=== PATIENT | female | born 1965 | race Caucasian/White ===

== ENCOUNTER 2018-01-04 10:58 | Day surgery (SDC) | payer OTHER ==
[2018-01-04] MEDS ORDERED: ceFAZolin 2 GM/SWFI 2 GM/20 ML SYR IVP ONE (11:06)
[2018-01-04] MEDS ORDERED: LR 1,000 ML IV ONE (11:08)
[2018-01-04] MEDS ORDERED: LIDOCAINE 1% 2 ML INJ ID PRN (11:08)
[2018-01-04] MEDS ORDERED: ceFAZolin 2 GM/DEXTROSE 100 ML IV ONE (11:30)
[2018-01-04] MEDS ORDERED: BUPIVACAINE/EPI 0.5% 30 ML SDV ONE (11:55)
[2018-01-04] MEDS ORDERED: BACITRACIN 50,000 UNITS/10 ML SYR IRR ONE (11:56)
[2018-01-04] MEDS ORDERED: LIDOCAINE 1% 300 MG/30 ML SDV ONE (11:56)
[2018-01-04] MEDS ORDERED: fentaNYL 100 MCG/2 ML INJ ONE ×2 (12:03→12:27)
[2018-01-04] MEDS ORDERED: MIDAZOLAM 2 MG/2 ML VIAL ONE (12:15)
[2018-01-04] MEDS ORDERED: MIDAZOLAM 2 MG/2 ML VIAL IVP ONE (12:16)
--- NOTE | 2018-01-04 12:18 | PDANEPAE ---
ANE History of Present Illness L distal radius fx ANE Past Medical History - Cardiovascular History Hx Hypertension: Yes Hx Arrhythmias: No Hx Chest Pain: No Hx Coronary Artery / Peripheral Vascular Disease: No Hx CHF / Valvular Disease: No Hx Palpitations: No - Pulmonary History Hx COPD: No Hx Asthma/Reactive Airway Disease: No Hx Recent Upper Respiratory Infection: No Hx Oxygen in Use at Home: No Hx Sleep Apnea: No Sleep Apnea Screening Result - Last Documented: Negative - Neurologic History Hx Cerebrovascular Accident: No Hx Seizures: No Hx Dementia: No - Endocrine History Hx Diabetes: No Hypothyroid: No Hyperthyroid: No Obesity: yes, moderate - Renal History Hx Renal Disorders: No - Liver History Hx Hepatic Disorders: No - Neurological & Psychiatric Hx Hx Neurological and Psychiatric Disorders: No Neurological / Psychiatric History Comment: HX OF DEPRESSION - Cancer History Hx Cancer: No - Congenital Disorder History Hx Congenital Disorders: No - GI History GERD: mild Hx Gastrointestinal Disorders: Yes Gastrointestinal History Comment: GERD - Other Health History Other Health History: GLAUCOMA - Chronic Pain History Chronic Pain: Yes (GLUTE PAIN) - Surgical History Prior Surgeries: NONE ANE Review of Systems Review of Systems: - Exercise capacity METS (RN): 4 METS ANE Patient History - Allergies Allergies/Adverse Reactions: Penicillins Allergy (Verified 01/03/18 16:49) Vomiting - Home Medications Home Medications: Dexilant 01/03/18 [Last Taken 01/04/18 06:50] Estradiol 01/03/18 [Last Taken 01/04/18 06:50] Latanoprost 01/03/18 [Last Taken 01/03/18 21:00] Metoprolol Tartrate 01/03/18 [Last Taken 01/04/18 06:50] - NPO status NPO Since - Liquids (Date): 01/04/18 NPO Since - Liquids (Time): 09:00 NPO Since - Solids (Date): 01/03/18 NPO Since - Solids (Time): 19:00 - Anes Hx Anes Hx: no prior problems - Smoking Hx Smoking Status: Never smoked - Alcohol Use Alcohol Use: Occasionally - Family Anes Hx Family Anes Hx: neg - N/A Family Hx Anesthesia Complications: NONE ANE Labs/Vital Signs - Vital Signs Blood Pressure: 141/92 Heart Rate: 95 Respiratory Rate: 14 O2 Sat (%): 93 Height: 172.72 cm Weight: 102.965 kg ANE Physical Exam - Airway Neck exam: FROM Mallampati Score: Class 2 Mouth exam: normal dental/mouth exam - Pulmonary Pulmonary: no respiratory distress, no rales or rhonchi, clear to auscultation - Cardiovascular Cardiovascular: regular rate and rhythym, no murmur, rub, or gallop - ASA Status ASA Status: II ANE Anesthesia Plan Anesthesia Plan: general endotracheal anesthesia Total IV Anesthesia: No
--- NOTE | 2018-01-04 12:22 | PDHPUP ---
History & Physical Update H&P update statement: This history and physical update is based on an assessment of the patient which was completed after admission or registration (within 24 hours), but prior to the surgery/procedure. H&P update: H&P reviewed & patient examined, changes noted H&P changes: She continues to have persistent carpal tunnel symptoms in the left hand. Will proceed with CTR
[2018-01-04] MEDS ORDERED: ROCURONIUM 50 MG/5 ML VIAL ONE (12:27)
[2018-01-04] MEDS ORDERED: DEXAMETHASONE 4 MG/ML VIAL ONE (12:27)
[2018-01-04] MEDS ORDERED: ONDANSETRON 4 MG/2 ML VIAL ONE ×2 (12:27→16:00)
[2018-01-04] MEDS ORDERED: LIDOCAINE 2% 5 ML SDV ONE (12:27)
[2018-01-04] MEDS ORDERED: PROPOFOL 200 MG/20 ML VIAL ONE (12:30)
[2018-01-04] MEDS ORDERED: fentaNYL 100 MCG/2 ML INJ IVP ONE (12:45)
[2018-01-04] MEDS ORDERED: PROPOFOL/EMULSION 500 MG/50 ML BOTTLE IV ONE (12:45)
[2018-01-04] MEDS ORDERED: PHENYLEPHRINE HCL 100 MCG/ML SYR IVP PRN (13:08)
[2018-01-04] MEDS ORDERED: DIAZEPAM 5 MG/ML 1 ML SYR IVP PRN (13:08)
[2018-01-04] MEDS ORDERED: ACETAMINOPHEN 500 MG TAB PO PRN (13:08)
[2018-01-04] MEDS ORDERED: HYDROCODONE/APAP 5/325 TAB PO PRN (13:08)
[2018-01-04] MEDS ORDERED: HYDROmorphONE/DILAUDID 2 MG/ML INJ IVP PRN (13:08)
[2018-01-04] MEDS ORDERED: LR 500 ML IV PRN (13:08)
[2018-01-04] MEDS ORDERED: ONDANSETRON 4 MG/2 ML VIAL IVP PRN (13:08)
[2018-01-04] MEDS ORDERED: fentaNYL 100 MCG/2 ML INJ IVP PRN (13:08)
[2018-01-04] MEDS ORDERED: LABETALOL HCL 5 MG/ML 20 ML MDV IVP PRN (13:08)
[2018-01-04] MEDS ORDERED: epHEDrine SULFATE 10 MG/ML SYR IVP PRN (13:08)
[2018-01-04] MEDS ORDERED: PROMETHAZINE HCL 25 MG/ML INJ IVP PRN (13:08)
[2018-01-04] MEDS ORDERED: NALOXONE HCL 0.4 MG/ML INJ IVP PRN (13:08)
[2018-01-04] MEDS ORDERED: PHENYLEPHRINE HCL 100 MCG/ML SYR ONE (13:16)
[2018-01-04] MEDS ORDERED: KETOROLAC 30 MG/1 ML SDV ONE (14:26)
[2018-01-04] MEDS ORDERED: oxyCODONE IR 5 MG TAB ONE ×2 (16:09→16:41)
[2018-01-04] MEDS ORDERED: ACETAMINOPHEN 500 MG TAB ONE (16:09)
[2018-01-04] MEDS: oxyCODONE IR 5 MG TAB PO PRN ×2 (16:10→16:45)
--- NOTE | 2018-01-04 17:21 | POSTANESTH ---
Post Anesthetic Evaluation Cardiovascular Status: Normal, Stable Respiratory Status: Normal, Stable Level of Consciousness/Mental Status: Can Participate in Eval Pain Control: Adequate, Prn Tx Ordered Nausea/Vomiting Control: Adequate, Prn Tx Ordered Complications Possibly Related to Anesthesia: None Noted
[2018-01-04 17:38] VITALS: BP 127/76
--- NOTE | 2018-01-06 08:35 | GOP ---
[f rep st] OPERATIVE REPORT DATE OF OPERATION: 01/04/2018 SURGEON: Lan Camarillo MD ANESTHESIA: General. PREOPERATIVE DIAGNOSIS: 1. Left intra-articular distal radius fracture in 2 parts. 2. Carpal tunnel syndrome. POSTOPERATIVE DIAGNOSIS: 1. Left intra-articular distal radius fracture in 2 parts. 2. Carpal tunnel syndrome. PROCEDURE PERFORMED: 1. Open reduction internal fixation left distal radius, intra-articular, 2 parts. 2. Left open carpal tunnel release. FINDINGS: INDICATIONS: This is a 52-year-old female who sustained this injury 2 days prior while she was helping back up a trailer while on vacation for the weekend. She fell backwards, injuring her wrist, seen at a local ER. Reduction was performed. She was placed in a splint. She notes that she developed numbness and tingling in her radial-sided digits after the injury, which improved some after the reduction but have since persisted. The symptoms come and go and include tingling of the thumb, index, and long finger. I saw her in the office the day after the injury. I reviewed her x-rays. Pre- reduction x-rays show a right severe distal radius fracture with complete dissociation of the radius and the radial fragment and the ulna dorsally displaced. There is a separate ulnar styloid fragment. Postreduction films with persistent dorsal angulation about 30 degrees. With the amount of initial displacement and persistent dorsal displacement ORIF is indicated. I discussed with the patient the possibility of a carpal tunnel release. She does not appear to have acute carpal tunnel syndrome, but she has developed transient carpal tunnel symptoms that persisted. I discussed with her that if they persisted the following day from surgery will likely proceed with a carpal tunnel release as there is likely swelling around the nerve. I discussed with her the possibility of having to address the ulnar side due to the complete radioulnar dissociation. I discussed with her the risks of the surgery. Risks include pain, bleeding, infection, damage to surrounding structures, need for further operations in the future including implant removal, delayed union, nonunion, stiffness, ulnar-sided wrist pain, tendon irritation. She understood these risks and wished to proceed. DESCRIPTION OF PROCEDURE: The patient was seen in preoperative holding area. She was given an opportunity to ask questions. All her questions were answered. Consent was signed. Surgical site was marked. She was transferred to the operative suite. Care was taken to pad all bony prominences on the gurney. The left upper extremity was prepped and draped in the usual sterile fashion. 2 g of Ancef was given prior to incision. Time-out was called including surgical and anesthesia teams confirming the surgical site and procedure to be performed. The left upper extremity was prepped and draped in the usual sterile fashion. An Esmarch was used to exsanguinate the left upper extremity. The tourniquet was inflated to 250 mmHg. I began the procedure with the carpal tunnel release. I made a standard mini open carpal tunnel incision. I incised the skin to the level of the palmar fascia, incised the palmar fascia, visualizing the transverse carpal ligament. I incised some palmaris brevis fibers that were . I incised the transverse carpal ligament, revealing the nerve. Then, I divided the distal antebrachial fascia under direct visualization proximally. I inspected the nerve. In the carpal tunnel and deep to the nerve, there was hemorrhage from the fracture. This was likely increasing the pressure on the carpal tunnel. I identified the motor recurrent branch which was intact. The wound was then irrigated, and I turned my attention to the ORIF of the distal radius. I made an incision for a modified volar Florentin approach. A modified Florentin approach was performed in the standard fashion. All vital structures were protected at all times. I identified the pronator quadratus. The distal aspect of the part where it was already completely peeled off the distal radius with with some periosteal stripping, took off the lid off the remainder of the pronator quadratus. I visualized the fracture, I did the fracture, then performed provisional reduction. I chose a plate, placed the plate over the bone, when in the elected position I applied and placed the cortical screws further down to the shaft, then reduced the fracture to the plate, held this with K-wires. I checked my reduction. I was happy with my reduction. I then placed the distal locking screw near the locking closure, I checked the position of my distal locking screws. The screw that was most ulnar appeared quite close to the DRUJ joint; thus, I removed this screw and placed a radial right angle screw aiming it away from the DRUJ. I inspected the reduction of the ulnar styloid. It did not appear to be captured with my screw. I then removed this screw enough to reduce the ulnar styloid piece. I released the brachioradialis in a step-cut fashion. This assisted in the reduction of the radial styloid piece and held the reduction with a K-wire. I then used the variable angle option with a screw in the entire radial styloid to capture the entire piece. The screw was placed. I took the wrist through a range of motion. There was smooth motion. There was no crepitus. The radial styloid piece appeared stable now with stability under live fluoroscopy without radial deviation. I then checked the DRUJ. In full pronation, the DRUJ was unstable; however, in supination, the DRUJ was stabilized. I decided to treat the DRUJ with splinting in supination At this point, this wound was irrigated copiously with sterile saline as well. The tourniquet was let down. The bleeding was well controlled. The wrist incision was closed in layers with 2-0 Monocryl and 4-0 Monocryl. This incision was closed with interrupted 4-0 nylons. Dressings applied. A sugar- tong splint was applied in supination. The patient tolerated the procedure well , was taken to the PACU in stable condition. Of note, I used local on the wrist after closing. Final x-rays were taken and saved. IMPLANTS: [employer] distal radius system. POSTOPERATIVE CONDITION: Stable. Blood loss was 5 cc. POSTOPERATIVE PLAN: The patient will follow up with me in clinic for serial x- rays to evaluate healing. I will plan to likely keep her in the applied supination for about 4 weeks . /[id number]/MODL MTDD
== END 2018-01-04 17:39 | disposition home or self-care (01) ==
LOC: FSGY 10:58
PROVIDERS: ATTEND Orthopaedic Surgery Hand Surgery
PROC: 018 Peripheral Nervous System, Division (ICD-10-PCS; principal; 2018-01-04 12:30)
PROC: 0PSJ04Z Reposition Left Radius with Internal Fixation Device, Open Approach (ICD-10-PCS; principal; 2018-01-04 12:30)
DX: S52.572A Other intraarticular fracture of lower end of left radius, initial encounter for closed fracture (principal); G56.02 Carpal tunnel syndrome, left upper limb; W19.XXXA Unspecified fall, initial encounter; Y92.833 Campsite as the place of occurrence of the external cause; Y93.89 Activity, other specified; Y99.8 Other external cause status; K21.9 Gastro-esophageal reflux disease without esophagitis; I10 Essential (primary) hypertension; F32.9 Major depressive disorder, single episode, unspecified; Z88.0 Allergy status to penicillin
CPT/HCPCS: C1713; J0690; J1100; J1885; J2250; J2370; J2405; J2704; J3010

== ENCOUNTER → 2018-01-18 | Outpatient (CLI) | payer OTHER | LOC: BMCIMAGING 09:19 | PROVIDERS: ATTEND Orthopaedic Surgery Hand Surgery | DX: S52.572D Other intraarticular fracture of lower end of left radius, subsequent encounter for closed fracture with routine healing (principal); T84.228A Displacement of internal fixation device of other bones, initial encounter ==

== ENCOUNTER → 2018-02-15 | Outpatient (CLI) | payer OTHER | LOC: BMCIMAGING 13:17 | PROVIDERS: ATTEND Orthopaedic Surgery Hand Surgery | DX: S52.572D Other intraarticular fracture of lower end of left radius, subsequent encounter for closed fracture with routine healing (principal) ==

== ENCOUNTER → 2018-03-02 | Outpatient (CLI) | payer OTHER | LOC: BMCIMAGING 07:56 | PROVIDERS: ATTEND Orthopaedic Surgery Hand Surgery | DX: S52.572D Other intraarticular fracture of lower end of left radius, subsequent encounter for closed fracture with routine healing (principal); S52.612A Displaced fracture of left ulna styloid process, initial encounter for closed fracture ==